=== PATIENT | female | born 1990 | race African-American/Black ===

== ENCOUNTER 2016-05-28 17:24 | Emergency (ER) | payer MEDICAID ==
[~2016-05-28] VITALS: Ht 154.9 cm; Wt 89.8 kg
[2016-05-28 18:00] VITALS: BP 124/85
[2016-05-28] MEDS ORDERED: KENALOG 0.025%15 GM APPLIC (18:31)
[2016-05-28] MEDS ORDERED: BENADRYL25 MG ORAL (18:31)
[2016-05-28 18:44] VITALS: BP 124/85
--- NOTE | 2016-05-28 21:21 | Emergency Room Report ---
History of Present Illness General Chief Complaint: Skin Rash/Abscess Source: Patient Present Illness HPI The patient is a 25-year-old female presenting with a rash which began 5 days prior. The patient states that she was being treated with amoxicillin for right otitis media. The patient states that she has taken amoxicillin in the past has not had a reaction. Patient denies using any new products. Patient describes the rash as red and itchy. Patient denies any pain. The patient noticed a rash only on the arms and neck. Patient has not tried any medications. The patient denies any other symptoms including N, V,F, chills, AGUILAR , swelling, SOB Allergies: Coded Allergies: No Known Allergies (Unverified , 05/28/16) Patient History Past Medical History: old chart reviewed Pertinent Family History: none Last Menstrual Period: 04/30/16 Now: No Reviewed Nursing Documentation: PMH: Agreed, PSxH: Agreed Nursing Documentation-PMH Past Medical History: No Stated History Review of Systems All Other Systems: negative except mentioned in HPI Physical Exam Vital Signs Date Time Temp Pulse Resp B/P Pulse Ox O2 Delivery O2 Flow Rate FiO2 05/28/16 17:33 98.1 71 16 124/85 100 Room Air Sp02 EP Interpretation: reviewed, normal General Appearance: no apparent distress, alert, GCS 15, non-toxic Head: normocephalic, atraumatic Eyes: bilateral eye PERRL, bilateral eye normal inspection ENT: hearing grossly normal, normal pharynx, no angioedema, normal voice Neck: full range of motion, supple/symm/no masses Respiratory: chest non-tender, lungs clear, normal breath sounds, no wheezing, speaking full sentences Cardiovascular #1: regular rate, rhythm, no edema Musculoskeletal: back normal, gait/station normal, normal range of motion, non- tender, calf tenderness Neurologic: alert, oriented x3, responsive, motor strength/tone normal, sensory intact, speech normal Psychiatric: judgement/insight normal, memory normal, mood/affect normal, no suicidal/homicidal ideation Skin: warm/dry, normal turgor, rash - maculopapular rash of bilat arms and neck Lymphatic: no adenopathy Medical Decision Making PA Attestation Dr. Morocho is my supervising physician. Patient management was discussed with my supervising physician Diagnostic Impression: Primary Impression: Allergic reaction ER Course The patient is a 25-year-old female presenting with a rash which began 5 days prior Ddx considered include but not limited to insect bite, contact dermatitis, eczema, cellulitis PE: vitals WNL. NAD There is an erythematous maculopapular rash of bilateral arms and neck. The excoriation san are seen. Otherwise exam is unremarkable Lungs are clear to auscultation bilaterally. No angioedema. No extremity edema The patient is discharged home with a prescription for Benadryl and triamcinolone. The patient has finished her course of antibiotics. Patient is advised she may need allergy testing and will followup with PMD. ER precautions are given Last Vital Signs Date Time Temp Pulse Resp B/P Pulse Ox O2 Delivery O2 Flow Rate FiO2 05/28/16 18:44 98.1 16 124/85 100 Room Air 05/28/16 17:33 71 Status: improved Disposition: HOME, SELF-CARE Condition: Improved Scripts Triamcinolone Acet (Triamcinolone Acetonide) 15 Gm Cream..g. 15 GM APPLIC TID, #15 GM Prov: RODRIGO OCAMPOACarrie 05/28/16 Diphenhydramine Hcl* (BENADRYL*) 25 Mg Capsule 25 MG ORAL Q6H Y for Itching, #20 CAP Prov: RODRIGO OCAMPO P.A. 05/28/16 Referrals: [facility],REFERRING (PCP) Patient Instructions: Pruritus Additional Instructions: I discussed my findings with the patient. All questions and concerns have been answered. Treatment and medication compliance have been addressed. I advised the patient that they need to follow up with PMD in 3-5 days. Return to ED if symptoms worsen, new symptoms arise, or if needed for any reason. Patient verbalized understanding of discharge instructions. The patient is advised that she may need allergy testing RODRIGO OCAMPO May 28, 2016 21:21
== END 2016-05-28 18:45 | disposition home or self-care (01) ==
LOC: EMR 17:45
DX: T78.40XA Allergy, unspecified, initial encounter (principal); X58.XXXA Exposure to other specified factors, initial encounter; R21 Rash and other nonspecific skin eruption
CPT/HCPCS: 99284